=== PATIENT | male | born 1985 | race Caucasian/White ===

== ENCOUNTER 2023-05-09 10:02 | Emergency (ER) | payer MEDICAID ==
[~2023-05-09] VITALS: Ht 170.2 cm; Wt 95.7 kg
[2023-05-09] MEDS ORDERED: FLUORESCEIN SODIUM OPHTH 1 EA STRIP ONE (11:28)
[2023-05-09] MEDS ORDERED: TETRACAINE HCL 0.5% OPHTALMIC 15 ML BOTTLE OP ONE (11:30)
[2023-05-09] MEDS ORDERED: FLUORESCEIN SODIUM OPHTH 1 EA STRIP OP ONE (11:30)
[2023-05-09] MEDS ORDERED: CIPR2.5D14 LEFTEYE (12:18)
[2023-05-09 12:25] VITALS: BP 142/84; TEMP 209.7; O2SAT 99
== END 2023-05-09 12:25 | disposition home or self-care (01) ==
LOC: ER 10:07
DX: T15.12XA Foreign body in conjunctival sac, left eye, initial encounter (principal); Z60.2 Problems related to living alone; X58.XXXA Exposure to other specified factors, initial encounter; Y93.89 Activity, other specified; Y92.89 Other specified places as the place of occurrence of the external cause; Y99.8 Other external cause status